=== PATIENT | male | born 1985 | race Caucasian/White ===

== ENCOUNTER 2020-09-10 23:21 | Emergency (ER) | payer OTHER, SELFPAY ==
[2020-09-10] VITALS (7 sets, daily range): BP systolic 115–139; BP diastolic 69–90; PULSE 76–91; RESP 15–68; TEMP 36.6; O2SAT 97
[2020-09-10 23:49] LABS: Basophils Percent Auto 0.4 % (0.2-1.2); Eosinophils Absolute Auto 0.1 K/mm3 (0-0.3); Eosinophils Percent Auto 0.4 % (0-4.4); Hematocrit 40.6 % (42.0-52.0); Hemoglobin 13.3 g/dL (14.0-18.0); Immature Granulocyte Absolute 0.04 K/mm3 (0.00-0.031); Immature Granulocyte Percent A 0.4 % (0-0.5); Lymphocytes Absolute Auto 1.77 K/mm3 (0.9-3.2); Lymphocytes Percent Auto 15.9 % (18.3-44.2); Mean Corpuscular HGB Conc 32.8 g/dl (32-36); Mean Corpuscular Hemoglobin 24.9 pg (26-34); Mean Platelet Volume 9.1 fl (7.4-10.4); Monocytes Absolute Auto 0.7 K/mm3 (0.1-0.6); Monocytes Percent Auto 6.6 % (2.6-8.5); Neutrophils Absolute Auto 8.5 K/mm3 (1.3-6.7); Neutrophils Percent Auto 76.3 % (45.5-73.1); Platelet Count Result 285 k/mm3 (150-375); Red Blood Count 5.34 M/mm3 (4.6-6.20); Red Cell Distribution Width 14.4 % (11.5-14.5); White Blood Count 11.1 K/mm3 (4.5-10.0)
--- NOTE | 2020-09-10 23:55 | PC.NURSE ---
RN spoke to Iman @ [facility] at this time. Pt ingested medications at about 11 pm. Poison Control states pt will need symptomatic supportive care for 6 hours post ingestion so approximately 0500. Normal over dose labs-aspirin, tylenol, alcohol, cmp, ekg will be needed. Expect Hypotension, nausea, vomiting, dizziness and drowsiness.
[2020-09-11] VITALS (45 sets, daily range): BP systolic 87–131; BP diastolic 50–89; PULSE 58–91; RESP 12–22; O2SAT 96–99
[2020-09-11 00:01] LABS: Acetaminophen < 10 ug/mL (10-30); Ethanol < 10 mg/dL (<10); Salicylate < 1.0 mg/dL (2-20)
[2020-09-11 00:02] LABS: Alanine Aminotransferase 15 U/L (4-50); Albumin Level 4.4 g/dL (3.5-5.1); Alkaline Phosphatase 44 U/L (38-126); Anion Gap 9 mmol/L (8-16); Aspartate Amino Transferase 20 U/L (17-59); Bilirubin,Total 0.4 mg/dL (0.2-1.3); Blood Urea Nitrogen 16 mg/dL (9-20); Calcium 9.6 mg/dL (8.4-10.2); Carbon Dioxide 24 mmol/L (22-30); Chloride 106 mmol/L (98-107); Estimated CRCL calculation 124 ml/min; Estimated Glomerular Filt Rate > 60; Glucose 157 mg/dL (75-110); Potassium 3.8 mmol/L (3.4-5.0); Sodium 139 mmol/L (137-145)
--- NOTE | 2020-09-11 00:25 | ECG_ITS ---
Measurements Intervals Dafter Rate: 65 P: 13 DC: 157 QRS: 35 QRSD: 113 T: 31 QT: 409 QTc: 425 Interpretive Statements SINUS RHYTHM INTRAVENTRICULAR CONDUCTION DELAY EARLY PRECORDIAL R/S TRANSITION MINIMAL Q WAVES- ANTEROLAT/HIGH LAT LEADS BORDERLINE ECG Electronically Signed On 09-11-2020 16:19:50 MARKET RESEARCH ANALYST by Jakob Davies D.O.
--- NOTE | 2020-09-11 00:32 | PC.NURSE ---
per pt request, rn spoke with pt father and gave him an update that pt is stable.
--- NOTE | 2020-09-11 01:00 | PC.NURSE ---
pt sleeping, no distress noted. 1:1 sitter at bedside.
[2020-09-11 01:08] LABS: Add Urine Microscopic? YES; Appearance Urine Clear (Clear); Bilirubin Urine Negative (Negative); Blood Urine Negative (Negative); Calcium Oxalate Crystals Urine Present /hpf; Color Urine Yellow (Yellow); Glucose Urine UA Negative (Negative); Ketones Urine Negative (Negative); Leukocyte Esterase Ur Negative LEU/UL (Negative); Mucus Urine Few /lpf; Nitrate Urine Negative (Negative); Protein Urine 1+ mg/dL (Negative); RBC Urine 0-2 /hpf (0-2); Squamous Epithelial Cell Urine Rare /hpf (Few); Urobilinogen Urine Negative mg/dL (<2.0); WBC Urine 0-3 /hpf
[2020-09-11 01:12] LABS: Specific Grav Ur 1.033 (1.001-1.035)
[2020-09-11 01:15] LABS: Amphetamine Screen Urine Negative (Negative); Barbiturate Screen Urine Negative (Negative); Benzodiazepines Screen Urine Negative (Negative); Cannabinoid Screen Urine Negative (Negative); Cocaine Screen Urine Negative (Negative); Methadone Screen Urine Negative (Negative); Opiate Screen Urine Negative (Negative); Phencyclidine Screen Urine Negative (Negative)
--- NOTE | 2020-09-11 02:00 | PC.NURSE ---
pt sleeping, no distress noted. 1:1 sitter at bedside.
--- NOTE | 2020-09-11 03:00 | PC.NURSE ---
pt sleeping ,no distress noted. 1:1 sitter at bedside.
--- NOTE | 2020-09-11 03:00 | ED.OVERDOSE ---
HPI - Overdose General Chief Complaint: Overdose Stated Complaint: OD Time Seen by Provider: 09/10/20 23:24 History of Present Illness HPI Narrative: Patient 35-year-old gentleman who presents emerge department with chief complaint of overdose. Patient reports that he has been under a lot of stress and tonight got an argument with his significant other. The patient reports that he then decided to try to attempt to end his life and he took 30 tablets of 0.5 mg Requip 4 tablets of 50 mg Seroquel stay tablets of 100 mg Seroquel and 23 tablets of 150 Mg of trazodone. Patient at this time is awake alert able to answer all questions the patient states that he wants help and is voluntary at this time Related Data Home Medications Medication Instructions Recorded Confirmed metformin 1,000 mg PO BID 09/10/20 prochlorperazine maleate 10 mg PO Q8H PRN 09/10/20 quetiapine 50 mg PO HS 09/10/20 quetiapine 100 mg PO HS 09/10/20 ropinirole [Requip] 0.5 mg PO DAILY 09/10/20 trazodone 150 mg PO HS 09/10/20 Allergies Allergy/AdvReac Type Severity Reaction Status Date / Time No Known Allergies Allergy Verified 09/10/20 23:34 Review of Systems Review of Systems: Narrative: CONSTITUTIONAL: Denies fever, chills, or sweats. EYES: Denies visual changes, redness, or discharge. ENT: Denies rhinorrhea, congestion, sore throat, or otalgia. CARDIOVASCULAR: Denies chest pain, palpitations, or edema. RESPIRATORY: Denies cough or dyspnea. GASTROINTESTINAL: Denies abdominal pain, nausea, vomiting, or diarrhea. GENITOURINARY: Denies dysuria or hematuria. SKIN: Denies rash or itching. MUSCULOSKELETAL: Denies back pain, joint pain, or myalgia. NEUROLOGIC: Denies headache, numbness, or weakness. PSYCHIATRIC: Denies anxiety or depression. A 10 system review of systems was completed on the patient and is negative except for what is stated in the HPI. Nursing and ancillary documentation was reviewed. [facility] Social History Social History Gender identity (if verbalized by the patient): Male Sexual Orientation (if Verbalized by the Patient): Lesbian, Early, or Homosexual Comments Patient denies significant past medical history Exam Narrative: Exam Narrative: GENERAL: Well-appearing, well-nourished, and in no acute distress. HEAD: Normocephalic, atraumatic. EYES: PERRLA and EOMI. ENT: Nares clear, no rhinorrhea or epistaxis. Mucous membranes moist. NECK: Supple. CHEST: Clear to auscultation. No respiratory distress. HEART: Regular rate and rhythm. No murmur heard. Normal peripheral pulses. ABDOMEN: Soft, nontender, nondistended, normal active bowel sounds. EXTREMITIES: Normal range of motion. No edema. SKIN: Warm, dry, no rash. NEURO: No focal deficits. Alert and oriented x3. PSYCH: Normal mood and affect. Course Course Emergency Course: Patient is currently hemodynamically stable and protecting his airway was in control recommend patient be observed until 5 AM and if he continues to be asymptomatic at that time he can be met cleared from the exposure to the overdose. At 5 AM the patient was medically cleared for psychiatric evaluation Patient is currently being seen by crisis I will be signing out care to the day provider as of this time Vital Signs Vital signs: Vital Signs Temperature 36.6 C 09/10/20 23:22 Pulse Rate 81 09/10/20 23:22 Respiratory Rate 18 09/10/20 23:22 Blood Pressure 139/90 09/10/20 23:22 Pulse Oximetry 97 09/10/20 23:22 Temperature 36.6 C 09/10/20 23:22 Pulse Rate 65 09/11/20 04:46 Respiratory Rate 14 09/11/20 04:46 Blood Pressure 108/73 09/11/20 04:46 Pulse Oximetry 97 09/10/20 23:22 MDM - Overdose Lab Data Result diagrams: 09/10/20 23:39 09/10/20 23:39 Labs: Lab Results 09/10/20 09/10/20 09/10/20 Range/Units 23:39 23:39 23:39 WBC 11.1 H (4.5-10.0) K/mm3 RBC 5.34 (4.6-6.20) M/mm3 Hgb 13.3 L (14.0-18.0) g/dL Hc
--- NOTE | 2020-09-11 03:04 | PC.NURSE ---
RN spoke with [facility] to update on lab and ekg results. Pt to remain under observation until 0500, then they will release if no changes.
--- NOTE | 2020-09-11 04:00 | PC.NURSE ---
pt sleeping, no distress noted. 1:1 sitter at bedside.
--- NOTE | 2020-09-11 05:05 | PC.NURSE ---
pt sleeping, no distress noted. 1:1 sitter at bedside.
--- NOTE | 2020-09-11 05:17 | PC.NURSE ---
Brandi at [facility] has closed the case # [id number] .
--- NOTE | 2020-09-11 05:22 | PC.NURSE ---
Voice Mail left for Crisis at this time. Will await return phone call.
--- NOTE | 2020-09-11 07:30 | PC.NURSE ---
Patient's father called at this time,
--- NOTE | 2020-09-11 08:12 | PC.NURSE ---
Kenna faxing over intake forms for patient at this time. Kenna talking with patient for initial screen prior to admission
--- NOTE | 2020-09-11 10:51 | PC.NURSE ---
RN report called at this time, Shital CONLEY [phone]
[2020-09-11 18:31] LABS: SARS-CoV-2 RNA PCR Negative
== END 2020-09-11 12:00 ==
PROVIDERS: Emergency Medicine; Emergency Provider Emergency Medicine; PCP Nurse Practitioner Adult Health
DX: T42.8X2A Poisoning by antiparkinsonism drugs and other central muscle-tone depressants, intentional self-harm, initial encounter (principal); T43.592A Poisoning by other antipsychotics and neuroleptics, intentional self-harm, initial encounter; T43.212A Poisoning by selective serotonin and norepinephrine reuptake inhibitors, intentional self-harm, initial encounter; Z20.828 Contact with and (suspected) exposure to other viral communicable diseases; I45.9 Conduction disorder, unspecified; R94.31 Abnormal electrocardiogram [ECG] [EKG]
CPT/HCPCS: 36415; 80053; 80307; 81001; 84443; 85025; 87635; 93005; 99285; C9803; U0003